=== PATIENT | male | born 1965 | race Caucasian/White ===

== ENCOUNTER → 2016-10-28 | Outpatient (CLI) | payer OTHER | LOC: HEART CORB 15:00 | DX: I25.5 Ischemic cardiomyopathy (principal) | CPT/HCPCS: 93306 ==

== ENCOUNTER → 2016-10-28 | Outpatient (CLI) | payer OTHER | LOC: CT 10-21 11:00 | DX: J18.1 Lobar pneumonia, unspecified organism (principal); R59.0 Localized enlarged lymph nodes | CPT/HCPCS: 71250 ==

== ENCOUNTER → 2016-12-23 | Outpatient (CLI) | payer OTHER | LOC: HEART 192 15:07 → HEART 5 15:07 | DX: J41.0 Simple chronic bronchitis (principal) | CPT/HCPCS: 94010 ==

== ENCOUNTER → 2017-03-09 | Outpatient (CLI) | payer OTHER | LOC: CT 03-02 13:30 | DX: I10 Essential (primary) hypertension (principal) | CPT/HCPCS: 71260; J7050; Q9962 ==